=== PATIENT | female | born 1975 | race Caucasian/White ===

== ENCOUNTER 2017-12-24 09:19 | Emergency (ER) | payer SELFPAY ==
[2017-12-24 09:20] VITALS: BP 154/84; PULSE 101; RESP 20; TEMP 36.6; O2SAT 96; BMI 42.8
--- NOTE | 2017-12-24 10:00 | XR_ITS ---
XR chest 2V HISTORY: ITS.REASON: CHEST CONGESTION AND COUGH ORDERING PHYSICIAN: Karol Zendejas PATIENT AGE: 42 years COMPARISON: None available FINDINGS: The cardiomediastinal silhouette and pulmonary vascularity are within normal limits. The lungs are clear without infiltrates, suspicious nodules, or pleural effusions. No acute bony abnormalities. IMPRESSION: Negative chest, no acute finding
[2017-12-24 10:40] LABS: UTC Strep Screen (Rapid) Negative (Negative)
[2017-12-24 10:42] LABS: UTC Influenza A Antigen Negative (Negative); UTC Influenza B Antigen Negative (Negative)
--- NOTE | 2017-12-24 10:48 | HMH.EDUTC ---
[facility] [place] Clinical Impression: Acute sinusitis with symptoms > 10 days Acute bronchitis Qualifiers: Bronchitis organism: unspecified organism Qualified Code(s): J20.9 - Acute bronchitis, unspecified Disposition: Home, Self-Care Condition on Discharge: Good Instructions: DI for Sinusitis, DI for Acute Bronchitis Additional Instructions: * STOP SMOKING!!!! * start antibiotic today. Be sure to complete entire prescription even if feeling better. Augmentin was $58, Zpack $38, Doxycycline $55, amoxicillin $4. Amoxicillin is not the antibiotic I would have preferred for sinus infection but considering the cost and your lack of insurance, we can start here and if no better or getting worse, follow up and we can change then. * Monitor Temp. Follow up if fever consistent * humidifier/vaporizer/hot steamy shower * Inhaler that we provided in clinic every 4-6 hours as needed like we discussed. Should help open airways and improve cough, wheezing, shortness of breath. * Mucinex during the day for your cough and cough suppressant only at night. Be sure to drink lots of water. Insurance may not cover a prescription of mucinex. Might be cheaper to get 400mg tablets and take 2 tablets morning, midday and evening all with lots of water. * Promethazine DM cough syrup will cause drowsiness. Use it only at night. No driving, operating machinery or caring for small children after taking it. * Start steroid tomorrow since you had injection today. Helps with inflammation therefore, cough and wheezing. Follow directions on package. Rvwd side effects. Pt reports they have taken them before. * Lots of fluids * Sleep elevated * Humidifier/vaporizer * warm salt water gargles * warm fluids FOLLOW UP with primary care or return to [facility] IMMEDIATELY for new or worsening symptoms OR no noticeable improvement over the next 72 hours. 911 for difficulty breathing. Prescriptions: Amoxicillin [Amoxicillin 500mg Cap] 500 mg PO TID #30 cap predniSONE [Deltasone 10mg tablet] 10 mg PO BID #10 tab Promethazine/Dextromethorphan [Promethazine-Dm Syrup] 10 ml PO HS PRN #240 ml MDD 30ML/DAY PRN Reason: Cough Time of Disposition: 11:17 Medical Decision Making - Elpidio Inquiry Pt receiving controlled substance: No Vital Signs: 12/24/17 09:20 Temperature 97.9 F Temperature Source Tympanic Pulse Rate [Right Radial] 101 H Respiratory Rate 20 Blood Pressure [Left Arm] 154/84 Blood Pressure Mean [Left Arm] 107 Blood Pressure Source [Left Arm] Automatic Cuff Blood Pressure Position [Left Arm] Supine 02 Sat by Pulse Oximetry 96 Oxygen Delivery Method Room Air - Lab Data Lab results reviewed: Yes: I reviewed the patient's lab results. Lab Results 12/24/17 09:58: Influenza Type A Ag Negative, Influenza Type B Ag Negative 12/24/17 10:39: Strep Scn Rapid Clinic Negative Orders (Tests/Meds): ORDERS Category Date Time Status CXR 2 view (NOT portable) [XR chest 2V] Stat Exams 12/24/17 10:00 Taken Strep Screen Confirmation Stat Micro 12/24/17 10:39 Received - Radiology Data #1 Image(s): Chest Image Reviewed: Yes I reviewed the patient's radiology image w/the ED provider Preliminary Findings: Normal/NAD 1048: Dr. Martinez ER , not available at this time. Will review xray and return my call. 1056: Dr. Martinez, ER , return call. no acute findings on CXR. [facility] [place] - General Stated complaint: Chest Congestion,Vomiting Time Seen by Provider: 12/24/17 10:35 Mode of Arrival: Ambulatory Source of Information: Patient Limitations: No Limitations Description of Symptoms (Recalled from Triage Doc. by RN): sinus pressure, vomiting, pressure in ears, cough, chest congestion for 2 weeks HEENT Symptoms (Recalled from RN notes): Yes (sinus pressure, pressure in ears) Resp Symptoms (Recalled from RN notes): Yes (cough, chest congestion) Skin Symptoms (Recalled from RN notes): No MS Symptoms (Recalled from RN notes): No Functional Stat
--- NOTE | 2017-12-24 10:52 | ED_ITS ---
[facility] [place] Impression: Acute sinusitis with symptoms > 10 days Acute bronchitis Qualifiers: Bronchitis organism: unspecified organism Qualified Code(s): J20.9 - Acute bronchitis, unspecified Disposition: Home, Self-Care Condition on Discharge: Good Instructions: DI for Sinusitis, DI for Acute Bronchitis Additional Instructions: * STOP SMOKING!!!! * start antibiotic today. Be sure to complete entire prescription even if feeling better. Augmentin was $58, Zpack $38, Doxycycline $55, amoxicillin $4. Amoxicillin is not the antibiotic I would have preferred for sinus infection but considering the cost and your lack of insurance, we can start here and if no better or getting worse, follow up and we can change then. * Monitor Temp. Follow up if fever consistent * humidifier/vaporizer/hot steamy shower * Inhaler that we provided in clinic every 4-6 hours as needed like we discussed. Should help open airways and improve cough, wheezing, shortness of breath. * Mucinex during the day for your cough and cough suppressant only at night. Be sure to drink lots of water. Insurance may not cover a prescription of mucinex. Might be cheaper to get 400mg tablets and take 2 tablets morning, midday and evening all with lots of water. * Promethazine DM cough syrup will cause drowsiness. Use it only at night. No driving, operating machinery or caring for small children after taking it. * Start steroid tomorrow since you had injection today. Helps with inflammation therefore, cough and wheezing. Follow directions on package. Rvwd side effects. Pt reports they have taken them before. * Lots of fluids * Sleep elevated * Humidifier/vaporizer * warm salt water gargles * warm fluids FOLLOW UP with primary care or return to [facility] IMMEDIATELY for new or worsening symptoms OR no noticeable improvement over the next 72 hours. 911 for difficulty breathing. Prescriptions: Amoxicillin [Amoxicillin 500mg Cap] 500 mg PO TID #30 cap predniSONE [Deltasone 10mg tablet] 10 mg PO BID #10 tab Promethazine/Dextromethorphan [Promethazine-Dm Syrup] 10 ml PO HS PRN #240 ml MDD 30ML/DAY PRN Reason: Cough Time of Disposition: 11:17 Medical Decision Making - Elpidio Inquiry Pt receiving controlled substance: No Vital Signs: 12/24/17 09:20 Temperature 97.9 F Temperature Source Tympanic Pulse Rate [Right Radial] 101 H Respiratory Rate 20 Blood Pressure [Left Arm] 154/84 Blood Pressure Mean [Left Arm] 107 Blood Pressure Source [Left Arm] Automatic Cuff Blood Pressure Position [Left Arm] Supine 02 Sat by Pulse Oximetry 96 Oxygen Delivery Method Room Air - Lab Data Lab results reviewed: Yes: I reviewed the patient's lab results. Lab Results 12/24/17 09:58: Influenza Type A Ag Negative, Influenza Type B Ag Negative 12/24/17 10:39: Strep Scn Rapid Clinic Negative Orders (Tests/Meds): ORDERS Category Date Time Status CXR 2 view (NOT portable) [XR chest 2V] Stat Exams 12/24/17 10:00 Taken Strep Screen Confirmation Stat Micro 12/24/17 10:39 Received - Radiology Data #1 Image(s): Chest Image Reviewed: Yes I reviewed the patient's radiology image w/the ED provider Preliminary Findings: Normal/NAD 1048: SAW Richmond MD, not available at this time. Will review xray and return my call. 1056: Dr. Martinez, SA[facility] ROMAN, return call. no acute findings on CXR. [facility] [place] - General Stated complaint: Chest Congest
[2017-12-24 11:23] VITALS: BP 123/88; PULSE 78; RESP 20; TEMP 36.6
[2019-05-04 11:48] LABS: Apearance,Urine Clear (Clear); Color,Urine Yellow (Yellow)
[2019-05-04 11:49] LABS: Bilirubin,Urine Negative (Negative); Blood, Urine Negative (Negative); Glucose,Urine (UA) Negative (Negative); Ketones,Urine Negative (Negative); Protein,Urine 2+ (Negative); Specific Gravity, Urine 1.025 (1.005-1.030); UTC Leukocyte Esterase,Urine Negative (Negative); UTC Nitrate,Urine Negative (Negative); Urobilinogen,Urine 0.2 EU/dl (0.2)
== END 2017-12-24 11:24 | disposition home or self-care (01) ==
PROVIDERS: Emergency Provider Nurse Practitioner Family
DX: J01.90 Acute sinusitis, unspecified (principal); J20.9 Acute bronchitis, unspecified; Z88.2 Allergy status to sulfonamides; E66.9 Obesity, unspecified; Z68.41 Body mass index [BMI] 40.0-44.9, adult
CPT/HCPCS: 71046; 81003; 87804; 87880; 99203

== ENCOUNTER 2022-11-16 14:08 | Emergency (ER) | payer OTHER, SELFPAY ==
[2022-11-16] VITALS (10 sets, daily range): BP systolic 104–229; BP diastolic 56–113; PULSE 53–71; RESP 14–19; TEMP 36.7–37.2; O2SAT 95–100; BMI 48.7
--- NOTE | 2022-11-16 14:08 | ECG_ITS ---
APPROVED REPORT Exam: Resting ECG HR:62 bpm ECG Measurements Heart Rate 62 AXES NC 125 P 152 QRSd 105 QRS 185 QT 385 T 161 QTc 390 Conclusion SINUS RHYTHM NORMAL ECG UNCONFIRMED REPORT Electronically signed by : Eugene Baez MD 11/16/2022 20:53:45
--- NOTE | 2022-11-16 14:16 | XR_ITS ---
FINAL REPORT CLINICAL HISTORY: chest pain COMPARISON: 12/24/2017 FINDINGS: Two views of the chest were obtained. The heart size and pulmonary vascularity are within normal limits. The mediastinum is normal. No acute pulmonary abnormality is identified. There is no pneumothorax. The bony thorax is intact. IMPRESSION: No active cardiopulmonary disease. Reviewed, Interpreted and Dictated by Wallace Fisher III, MD Transcribed by Crystal Claudio Authenticated and [facility]
[2022-11-16 14:43] LABS: Basophils # 0.1 K/mm3 (0-0.2); Basophils % 0.8 % (0.1-2.0); Eosinophils # 0.2 K/mm3 (0.0-0.4); Eosinophils % 1.8 % (0.1-12.0); Hematocrit 45.9 % (37.0-47.0); Hemoglobin 14.8 g/dL (12.2-16.2); Lymphocytes # 3.2 K/mm3 (0.7-4.5); Lymphocytes % 27.5 % (10-50); Mean Corpuscular HGB Conc 32.3 g/dL (31.8-35.4); Mean Corpuscular Hemoglobin 29.4 pg (27.0-31.2); Mean Platelet Volume 8.3 fl (7.4-10.4); Monocytes # 0.6 K/mm3 (0.1-1.0); Monocytes % 4.7 % (1.7-9.3); Neutrophils # 7.7 K/mm3 (1.8-7.8); Neutrophils % 65.2 % (37.0-80.0); Platelet Count 353 K/mm3 (142-424); Red Blood Count 5.04 M/mm3 (4.20-5.40); Red Cell Distribution Width 13.8 % (11.5-17.5); White Blood Count 11.8 K/mm3 (4.8-10.8)
--- NOTE | 2022-11-16 14:43 | HMH.EDGENADL ---
Discharge Plan Disposition Patient Disposition: Home, Self-Care Prescriptions Prescriptions: No Action amoxicillin 500 MG capsule 500 mg PO TID Qty: 30 0RF promethazine-DM 118 ML syrup 10 ml PO HS MDD 30ML/DAY PRN (Reason: Cough) Qty: 240 0RF prednisone 10 MG tablet 10 mg PO BID Qty: 10 0RF Referrals Follow up/Referrals: Provider,Referral, MD [Primary Care Provider] - See instructions Activity Restrictions/Add. Instructions Additional Instructions/Restrictions: Please follow-up with your primary care physician with resources that were given to you today. Clinical Impressions Clinical Impression: Atypical chest pain Discharge ED Provider: Tonny Rahman Adult HPI General Chief complaint: Chest Pain Stated complaint: CP Time Seen by Provider: 11/16/22 14:43 History of Present Illness HPI narrative: Patient is a 47-year-old female presents today with chest discomfort over the last few days. She also states that she had some transient symptoms of some abnormal skin coloration to her right upper extremity and bilateral lower extremities in the past which have since completely resolved. She denies any radiation to her back. She denies any history of similar symptoms. This the symptoms were not exertional in nature. They are not associated with dyspnea they are not associated with nausea. She does not have a history of coronary disease or any other significant risk factors. She currently has mild chest discomfort. Central in nature. Pain is mild. Related Data Previous Rx's Medication Instructions Recorded amoxicillin 500 mg capsule 500 mg PO TID #30 caps 12/24/17 prednisone 10 mg tablet 10 mg PO BID #10 tabs 12/24/17 promethazine-DM 6.25 mg-15 mg/5 mL 10 ml PO HS PRN Cough #240 mL 12/24/17 oral syrup Allergies Allergy/AdvReac Type Severity Reaction Status Date / Time Sulfa (Sulfonamide Allergy Verified 12/24/17 09:59 Antibiotics) [facility] Disclaimer: The information contained in this section may have been updated after the patient was seen, as this information can be updated by other users. Social History Smoking Status: Current every day smoker tobacco type: cigarettes second hand exposure: Yes alcohol intake: never current occupational status: other Travel in the last 8 weeks: None ROS Obtained: Yes All systems reviewed & no additional complaints except as documented Physical Exam General General appearance: alert, in no apparent distress and appears intoxicated Head Head exam: atraumatic and normocephalic Eye Eye exam: Present normal appearance, PERRL and EOMI ENT ENT exam: Present normal exam Neck Neck exam: Present normal inspection and full ROM Chest Chest inspection: Present normal inspection and symmetric chest wall rise; Absent tenderness Respiratory Respiratory exam: Present normal lung sounds bilaterally; Absent respiratory distress, wheezes or stridor Cardiovascular Cardiovascular exam: Present regular rate and tachycardia Abdominal Exam Abdominal exam: Present soft; Absent distention or tenderness Neurological Exam Neurological exam: Present alert and oriented X3 Medical Decision Making Elpidio Inquiry Pt receiving controlled substance: No Elpidio was queried for this patient: No Vital Signs: 11/16/22 14:30 11/16/22 14:31 11/16/22 15:02 Temperature 98.9 F Temperature Source Oral Pulse Rate 60 61 Pulse Rate [Left] 71 Respiratory Rate 18 16 14 Blood Pressure 146/69 H 173/88 H Blood Pressure [Right Arm] 229/113 H Blood Pressure Mean 94 107 Blood Pressure Mean [Right Arm] 151 02 Sat by Pulse Oximetry 100 97 98 Oxygen Delivery Method Room Air 11/16/22 15:33 11/16/22 16:01 11/16/22 16:33 Temperature Temperature Source Pulse Rate 59 L 58 L 53 L Pulse Rate [Left] Respiratory Rate 15 Blood Pressure 129/70 104/56 L 150/67 H Blood Pressure [Right Arm] Blood Pressure Mean 89 90 94 Blood Pr
[2022-11-16 14:47] LABS: Alanine Aminotransferase 33 U/L (12-78); Albumin Level 4.3 g/dl (3.5-5.0); Alkaline Phosphatase 67 U/L (38-126); Anion Gap 7.7 mEq/L (5-15); Aspartate Amino Transferase 28 U/L (14-36); Bilirubin,Direct 0.2 mg/dl (0.0-0.4); Bilirubin,Indirect 0.3 mg/dL (0.0-0.9); Bilirubin,Total 0.5 mg/dl (0.2-1.3); Bilirubin,Unconjugated 0.3 mg/dL (0.0-1.1); Blood Urea Nitrogen 14 mg/dl (7-17); Calcium 8.7 mg/dl (8.4-10.2); Carbon Dioxide 34 mmol/L (22.0-30.0); Chloride 105 mmol/L (98-107); Estimated Glomerular Filt Rate 53 ml/min (>60); GFR (African American) 65 ML/MIN (>60); Glucose 108 mg/dl (74-100); Potassium 3.7 mmoL/L (3.5-5.1); Sodium 143 mmol/L (136-145); Total Protein,Serum 7.7 g/dl (6.3-8.2)
[2022-11-16 14:49] LABS: Creatinine Clearance Estimated 67 mL/min (50-200)
[2022-11-16 15:01] LABS: Troponin I < 0.01 ng/ml (0.00-0.034)
[2022-11-16 15:24] LABS: D-Dimer 0.55 ug/mL (0.0-0.5)
--- NOTE | 2022-11-16 15:50 | PC.NURSE ---
Rounded on patient, pt sitting up on ED stretcher looking at cell phone, Spouse at BS. no needs at this time aware that we are still waiting on some results. call light within reach
[2022-11-16 18:26] LABS: Troponin I < 0.01 ng/ml (0.00-0.034)
== END 2022-11-16 19:43 | disposition home or self-care (01) ==
PROVIDERS: Emergency Provider Student in an Organized Health Care Education/Training Program
DX: R07.89 Other chest pain (principal); F17.210 Nicotine dependence, cigarettes, uncomplicated
CPT/HCPCS: 71046; 80048; 80076; 84484; 85025; 85378; 93005; 99285

== ENCOUNTER 2023-07-08 17:20 | Emergency (ER) | payer OTHER, SELFPAY ==
[2023-07-08 18:25] VITALS: BP 181/96; PULSE 96; RESP 18; TEMP 37.4; O2SAT 99; BMI 43.7
--- NOTE | 2023-07-08 18:53 | EXP.UTC ---
Discharge Plan Disposition Patient Disposition: Home, Self-Care Condition: Good Prescriptions Prescriptions: New guaifenesin [Mucinex] 600 mg tablet extended release 12hr 1,200 mg PO BID PRN (Reason: cough) Qty: 20 0RF Referrals Follow up/Referrals: Provider,Referral, MD [Primary Care Provider] - See instructions Activity Restrictions/Add. Instructions Additional Instructions/Restrictions: *Monitor Temp, Over the counter Motrin or Tylenol as directed/as needed Tylenol every 4 hours and Motrin every 6 hours (as long as your family doctor has told you that you can take it) for fever or pain. and straight to ER if unable to lower temp less than 101.0 after medication given *Warm salt water gargles may help to soothe the throat *Throat Lozenges? *Warm fluids like tea with honey may help to soothe the throat? *Sleep elevated *Humidifier/Vaporizer *Flonase 2 sprays in each nostril daily but be aware that it may take 2-3 days before you notice improvement *Your throat swab was sent for culture. Those results are typically sent to your primary care. Be sure to follow up in 2-3 days with your family doctor/primary care physician if no improvement so they can review those result and treat if necessary. If you don?t have a primary care doctor, I recommend you get one but in the mean time, you will have to return to a walk in clinic Follow up IMMEDIATELY for new or worsening symptoms or no Noticeable improvement over the next 48-72 hours. 911 for difficulty breathing or swallowing You were tested for today for COVID19 your test result should be back in the next 24 hours You may check your result on the [facility] [facility] Portal for your results if you are positive you must Quarantine for 5 days Clinical Impressions Clinical Impression: URI (upper respiratory infection) Qualifiers: URI type: unspecified URI Qualified Code(s): J06.9 - Acute upper respiratory infection, unspecified Stand Alone Forms Stand Alone Forms: Work/School Release Instructions Patient Instructions: Sore Throat, DI for Nasal Congestion, DI for Headache Discharge ED Provider: Alysha Leslie [facility] [place] HPI General Stated complaint: fever,sore throat,PETERSON Mode of Arrival: Ambulatory Source of Information: Patient Limitations: No Limitations Time Seen by Provider: 07/08/23 18:53 Description of Symptoms (Recalled from Triage Doc. by RN): PATIENT C/O BODY ACHES, SORE THROAT, COUGH AND HEADACHE SINCE THIS MORNING HEENT Symptoms (Recalled from RN notes): Yes Resp Symptoms (Recalled from RN notes): Yes Skin Symptoms (Recalled from RN notes): No MS Symptoms (Recalled from RN notes): No Functional Status (Recalled from RN notes): WNL History of Present Illness Provider Complaint: Patient states that she had a cold a couple weeks ago and was doing better but this morning she woke up and and was having nasal congestion, sore throat, body aches, feeling achy all over and feels like she may have the flu States that this evening she was still feeling bad so she came in to get checked Related Data Previous Rx's Medication Instructions Recorded guaifenesin 600 mg tablet, 1,200 mg PO BID PRN cough #20 tabs 07/08/23 extended release 12 hr (Mucinex) Allergies Allergy/AdvReac Type Severity Reaction Status Date / Time Sulfa (Sulfonamide Allergy Verified 12/24/17 09:59 Antibiotics) Worker's Comp Is this a Worker's Comp case?: No [facility] Disclaimer: The information contained in this section may have been updated after the patient was seen, as this information can be updated by other users. Social History (Updated 11/16/22 @ 19:30 by Lillian Rahman MD) Smoking Status: Current every day smoker tobacco type: cigarettes second hand exposure: Yes alcohol intake: never current occupational status: other Travel in the last 8 weeks: None ROS Obtained: Yes All systems reviewed & no additional complaints e
[2023-07-08 18:56] LABS: UTC Influenza A Antigen Negative (Negative); UTC Influenza B Antigen Negative (Negative); UTC Strep Screen (Rapid) Negative (Negative)
[2023-07-08 18:59] VITALS: BP 181/96; PULSE 96; RESP 18; TEMP 37.4; O2SAT 99
== END 2023-07-08 19:04 | disposition home or self-care (01) ==
PROVIDERS: Emergency Provider Nurse Practitioner
DX: U07.1 COVID-19 (principal); R05.9 Cough, unspecified; F17.210 Nicotine dependence, cigarettes, uncomplicated
CPT/HCPCS: 87635; 87804; 87880; 99204; 99212; G0463

== ENCOUNTER 2024-02-03 16:37 | Emergency (ER) | payer SELFPAY ==
[2024-02-03 16:55] VITALS: BP 148/92; PULSE 87; RESP 19; TEMP 36.6; O2SAT 98; BMI 56.6
--- NOTE | 2024-02-03 17:08 | EXP.UTC ---
Discharge Plan Disposition Patient Disposition: Home, Self-Care Condition: Good Prescriptions Prescriptions: New ondansetron 4 mg tablet,disintegrating 4 mg PO Q8H PRN (Reason: nausea and vomiting) Qty: 12 0RF No Action guaifenesin [Mucinex] 600 mg tablet extended release 12hr 1,200 mg PO BID PRN (Reason: cough) Qty: 20 0RF Referrals Follow up/Referrals: Provider,Referral, MD [Primary Care Provider] - See instructions Activity Restrictions/Add. Instructions Additional Instructions/Restrictions: Drink extra fluids with and between meals. If you have difficulty drinking, try very small amounts of water or suck on ice chips. ? Avoid fruit juices, as these do not replace minerals and can actually increase diarrhea. ? Children and adults can use sports drinks to replenish electrolytes. Younger children and infants should use products formulated for children, like oral rehydration solutions. ? Eat food in small amounts and let your stomach recover. ? Get lots of rest. You may feel tired or weak. ? No greasy or fried foods for the next 24-48 hours BRAT diet Bananas Rice Apples and [place] ? Make sure to drink plenty of liquids ? Return if needed ? Straight to ER if any life threatening symptoms ? Zofran as prescribed ? You was given an outpatient order for diarrhea panel, please collect specimen and bring back to outpatient lab then call back to the [facility] or follow up with family doctor for results ? Follow up with family doctor in the next 48-72 hours if no improvement or any worsening of symptoms Clinical Impressions Clinical Impression: Viral syndrome Stand Alone Forms Stand Alone Forms: Work/School Release Instructions Patient Instructions: Diarrhea, DI for Nausea -- Adult Discharge ED Provider: Alysha Leslie [facility] [place] HPI General Stated complaint: abd pain, V/D, PETERSON Mode of Arrival: Ambulatory Source of Information: Patient Limitations: No Limitations Time Seen by Provider: 02/03/24 17:08 Description of Symptoms (Recalled from Triage Doc. by RN): PATIENT C/O NAUSEA, FEVER, CHILLS, STOMACH CRAMPS, BODY ACHES, AND HEADACHE SINCE SATURDAY MORNING HEENT Symptoms (Recalled from RN notes): Yes Resp Symptoms (Recalled from RN notes): No Skin Symptoms (Recalled from RN notes): No MS Symptoms (Recalled from RN notes): No Functional Status (Recalled from RN notes): WNL History of Present Illness Provider Complaint: Patient states that she has been having diarrhea, body aches, chills, nausea only vomited once but her diarrhea has been bad headache and over all not feeling well States that she is unsure if she has been around someone sick or not so today when she was still having bad diarrhea and nausea she was worried that she may get dehydrated so she came in to get checked Related Data Previous Rx's Medication Instructions Recorded guaifenesin 600 mg tablet, 1,200 mg (2 x 600 mg) PO BID PRN 07/08/23 extended release 12 hr (Mucinex) cough #20 tabs ondansetron 4 mg disintegrating 4 mg PO Q8H PRN nausea and 02/03/24 tablet vomiting #12 tabs Allergies Allergy/AdvReac Type Severity Reaction Status Date / Time Sulfa (Sulfonamide Allergy Verified 12/24/17 09:59 Antibiotics) Worker's Comp Is this a Worker's Comp case?: No [facility] Disclaimer: The information contained in this section may have been updated after the patient was seen, as this information can be updated by other users. Social History (Updated 11/16/22 @ 19:30 by Lillian Rahman MD) Smoking Status: Current every day smoker tobacco type: cigarettes second hand exposure: Yes alcohol intake: never current occupational status: other Travel in the last 8 weeks: None ROS Obtained: Yes All systems reviewed & no additional complaints except as documented and Yes Systems reviewed as appropriate & no additional complaints except as documented Constitutional Constitutional: Reports system reviewed and no additional complaints, except as documented, Reports as per HPI, Reports body ache, Reports chills, Reports fever(s) and Reports headache(s) ENT Ears, Nose, Mouth, and Throat: Reports system reviewed and no additional complaints, except as documented, Reports as per HPI and Reports headache(s) Cardiovascular Cardiovascular: Reports system reviewed and no additional complaints, except as documented and Reports as per HPI Respiratory Respiratory: Reports system reviewed and no additional complaints, except as documented and Reports as per HPI Gastrointestinal Gastrointestingal: Reports system reviewed and no additional complaints, except as documented, as per HPI, cramping, diarrhea, nausea and vomiting (once yesterday) Neurologic Neurologic: Reports headache(s) Physical Exam General General appearance: alert and in no apparent distress Expanded ENT Exam Nose exam: Absent sinus tenderness Throat exam: Present normal inspection Respiratory Respiratory exam: Present normal lung sounds bilaterally; Absent respiratory distress or wheezes Cardiovascular Cardiovascular exam: Present regular rate, normal rhythm and normal heart sounds Abdominal Exam Abdominal exam: Present soft and hyperactive bowel sounds; Absent distention or tenderness Neurological Exam Neurological exam: Present alert, oriented X3 and normal gait Medical Decision Making Elpidio Inquiry Pt receiving controlled substance: No Elpidio was queried for this patient: No Vital Signs: 02/03/24 16:55 Temperature 97.8 F Temperature Source Oral Pulse Rate [Left Brachial] 87 Respiratory Rate 19 Blood Pressure [Left Arm] 148/92 H Blood Pressure Mean [Left Arm] 110 Blood Pressure Source [Left Arm] Automatic Cuff Blood Pressure Position [Left Arm] Sitting 02 Sat by Pulse Oximetry 98 Oxygen Delivery Method Room Air Medical Decision Narrative: Discussed with patient that if she has diarrhea while in the UTC she needed to collect it to send to lab, discussed lab work and patient states she doesnt have any insurance, lips appear slightly dry discussed iv bolus of NS and patient agreed will give bolus of NS and zofran for nausea and reassess Patient states that nausea is much better after zofran and no diarrhea in the UTC but states that she is feeling better after the fluids States that she wants to go home and continue to hydrate and was dc'd with diarrhea panel order to bring back diarrhea sample if diarrhea continues
[2024-02-03 17:21] LABS: UTC Influenza A Antigen Negative (Negative); UTC Influenza B Antigen Negative (Negative)
[2024-02-03] MEDS: ONDANSETRON 4MG/2ML VIAL 4 MG IV (17:34)
[2024-02-03] MEDS: SODIUM CHLORIDE 0.9% 500ML BAG 500 ML IV (17:34)
[2024-02-03] MEDS: SODIUM CHLORIDE 0.9% 10ML FLUSH SYRINGE 10 ML IV (17:36)
[2024-02-03 18:11] VITALS: BP 148/92; PULSE 87; RESP 19; TEMP 36.6; O2SAT 98
== END 2024-02-03 18:29 | disposition home or self-care (01) ==
PROVIDERS: Emergency Provider Nurse Practitioner
DX: R11.2 Nausea with vomiting, unspecified; R19.7 Diarrhea, unspecified; R51.9 Headache, unspecified; F17.210 Nicotine dependence, cigarettes, uncomplicated
CPT/HCPCS: 87804; 96374; 99212; 99214; G0463; J2405

== ENCOUNTER 2024-02-04 20:02 | Outpatient (CLI) | payer SELFPAY ==
[2024-02-04 20:50] LABS: Adenovirus F 40/41, stool Not Detected (NotDetected); Campylobacter Not Detected (NotDetected); Clostridium Difficile A/B, PCR Not Detected (NotDetected); Cryptosporidium Not Detected (NotDetected); Cyclospora Cayetanesis Not Detected (NotDetected); Entamoeba histolytica Not Detected (NotDetected); Enteroaggregative E coli Not Detected (NotDetected); Enteropathogenic E coli Not Detected (NotDetected); Enterotoxigenic E coli Not Detected (NotDetected); Giardia lamblia Not Detected (NotDetected); Norovirus Not Detected (NotDetected); Plesimonas Shigalloides, PCR Not Detected (NotDetected); Rotavirus A Not Detected (NotDetected); Salmonella, PCR Not Detected (NotDetected); Sapovirus Not Detected (NotDetected); Shiga-like toxin E coli Not Detected (NotDetected); Shigella Enterovasive E coli Not Detected (NotDetected); Vibrio Cholerae Not Detected (NotDetected); Vibrio, PCR Not Detected (NotDetected); Yersinia Entercolitica, PCR Not Detected (NotDetected)
[2024-02-07 05:53] LABS: Astrovirus Detected (NotDetected)
== END 2024-02-04 23:59 | disposition home or self-care (01) ==
LOC: LAB.DROPOF 20:05
PROVIDERS: PCP Nurse Practitioner; Visit Provider Nurse Practitioner
DX: R19.7 Diarrhea, unspecified (principal); A08.32 Astrovirus enteritis
CPT/HCPCS: 87507

== ENCOUNTER 2024-04-03 10:48 | Emergency (ER) | payer SELFPAY ==
[2024-04-03 10:50] VITALS: BP 178/95; PULSE 94; RESP 15; TEMP 37; O2SAT 96; BMI 50.1
[2024-04-03 10:54] VITALS: BP 178/95; PULSE 87; O2SAT 97
[2024-04-03 11:15] VITALS: PULSE 91; O2SAT 95
--- NOTE | 2024-04-03 11:22 | PC.NURSE ---
DR FIGUEROA AT BEDSIDE
--- NOTE | 2024-04-03 11:31 | XR_ITS ---
FINAL REPORT CLINICAL HISTORY: CP fluid retention COMPARISON: 11/16/2022 FINDINGS: No acute pulmonary opacity is present. There is no evidence of effusion or pneumothorax. Mediastinum is unremarkable. Heart size is normal. IMPRESSION: No acute abnormality. Reviewed, Interpreted and Dictated by Rodo Nair MD Transcribed by Alejandra Urena Authenticated and [facility]
--- NOTE | 2024-04-03 11:55 | ED_ITS ---
Discharge Plan Disposition Patient Disposition: Home, Self-Care Prescriptions Prescriptions: New hydrochlorothiazide 25 mg tablet 25 mg PO DAILY Qty: 30 3RF No Action ondansetron 4 mg tablet,disintegrating 4 mg PO Q8H PRN (Reason: nausea and vomiting) Qty: 12 0RF guaifenesin [Mucinex] 600 mg tablet extended release 12hr 1,200 mg PO BID PRN (Reason: cough) Qty: 20 0RF Referrals Follow up/Referrals: Provider,MD Deshawn [Primary Care Provider] - See instructions Eugene Lee MD [Staff Physician] - See instructions Activity Restrictions/Add. Instructions Additional Instructions/Restrictions: Call your family doctor to establish care for this visit to the emergency department and schedule follow-up within 48 hours to ensure improvement. If you have any worsening of your condition or any other concerning signs or symptoms, return to the emergency department or your primary care doctor for further evaluation. Hydrochlorothiazide with multiple refills sent to the pharmacy. If you feel this is not helping, candesartan, or another drug in this class may be helpful. Clinical Impressions Clinical Impression: Headache, Hypertension Discharge ED Provider: Eladio Mclaughlin General Adult HPI General Chief complaint: Headache Stated complaint: Headache, bp 200/118 when she checked Time Seen by Provider: 04/03/24 10:54 Mode of Arrival: Ambulatory Source of Information: Patient Limitations: No Limitations Description of Symptoms (Recalled from ER Triage Doc. by RN): pt presents to ED with c/o high blood pressure and headache. headache began yesterday. pt reports no hx of hypertension. but last night she checked her bp and it was 582/121, pt reports to taking cozaar 50 mg approx 930pm. pt reprots when she checked her bp this am, it was 200/117. History of Present Illness HPI narrative: Please note that above description of symptoms, in this electronic medical record under categorization of recalled from ER triage doctor by RN are reflective of an initial nursing assessment, however, is not reflective of my full history and physical exam that was personally taken and clarified. Consequentially, this preceding description of symptoms, which may include the patient's categorized chief complaint in the EMR, do not reflect my personal clinical impression, and the ultimate description of history of present illness and patient stated complaints should be deferred to this section of the note. Unless stated otherwise or congruent with this section of the note, additional signs, symptoms, or incongruence should be interpreted as inaccurate with my clinical impression. Related Data Previous Rx's Medication Instructions Recorded guaifenesin 600 mg tablet, 1,200 mg (2 x 600 mg) PO BID PRN 07/08/23 extended release 12 hr (Mucinex) cough #20 tabs ondansetron 4 mg disintegrating 4 mg PO Q8H PRN nausea and 02/03/24 tablet vomiting #12 tabs hydrochlorothiazide 25 mg tablet 25 mg PO DAILY #30 tabs 04/03/24 Allergies Allergy/AdvReac Type Severity Reaction Status Date / Time Sulfa (Sulfonamide Allergy Verified 12/24/17 09:59 Antibiotics) [facility] Disclaimer: The information contained in this section may have been updated after the patient was seen, as this information can be updated by other users. Social History (Updated 11/16/22 @ 19:30 by Lillian Rahman MD) Smoking Status: Current every day smoker tobacco type: cigarettes second hand exposure: Yes alcohol intake: never current occupational status: other Travel in the last 8 weeks: None ROS Obtained: Yes All systems reviewed & no additional complaints except as documented Physical Exam General General appearance: alert and in no apparent distress Head Head exam: atraumatic and normocephalic Eye Eye exam: Present normal appearance, PERRL and EOMI ENT ENT exam: Present mucous membranes moist Neck Neck exam: Present normal inspection, full ROM and trachea midline Respiratory Respiratory exam: Absent respiratory distress, wheezes, stridor, accessory muscle use or prolonged expiratory phase Cardiovascular Cardiovascular exam: Present normal rhythm Abdominal Exam Abdominal exam: Present soft; Absent distention, tenderness, guarding, rebound or rigidity Extremities Exam Extremities exam: Absent edema Neurological Exam Neurological exam: Present alert, oriented X3, CN II-XII intact and normal gait; Absent motor sensory deficit Skin Skin exam: Present warm and dry; Absent diaphoresis or erythema Medical Decision Making Medical Records Medical records reviewed: Yes I reviewed the patient's medical records. [place] Inquiry Pt receiving controlled substance: No Elpidio was queried for this patient: No Vital Signs: 04/03/24 10:50 04/03/24 10:54 04/03/24 11:15 Temperature 98.6 F Temperature Source Oral Pulse Rate 87 91 H Pulse Rate [Left Radial] 94 H Respiratory Rate 15 Blood Pressure 178/95 H Blood Pressure [Right Arm] 178/95 H Blood Pressure Mean [Right Arm] 122 02 Sat by Pulse Oximetry 96 97 95 Oxygen Delivery Method Room Air Room Air Room Air 04/03/24 12:49 Temperature Temperature Source Pulse Rate 88 Pulse Rate [Left Radial] Respiratory Rate Blood Pressure 135/79 Blood Pressure [Right Arm] Blood Pressure Mean [Right Arm] 02 Sat by Pulse Oximetry 94 L Oxygen Delivery Method Lab Data Lab Results 04/03/24 11:44: WBC 10.6, RBC 4.77, Hgb 13.8, Hct 43.1, MCV 90.5, MCH 28.9, MCHC 31.9, RDW 14.4, Plt Count 355, MPV 8.4, Neut % (Auto) 66.6, Lymph % (Auto) 24.5, [place] % (Auto) 5.6, Eos % (Auto) 2.1, Baso % (Auto) 1.2, Neut # (Auto) 7.0, Lymph # (Auto) 2.6, [place] # (Auto) 0.6, Eos # (Auto) 0.2, Baso # (Auto) 0.1, Sodium 140, Potassium 4.2, Chloride 104, Carbon Dioxide 31 H, Anion Gap 9.2, BUN 17, Creatinine 0.90, Estimated Creat Clear 77, Estimated GFR 67, Est GFR ( Amer) 81, Glucose 126 H, Hemoglobin A1c 6.0, Calcium 8.7, Magnesium 2.1, Total Bilirubin 0.4, AST 29, ALT 34, Alkaline Phosphatase 70, Troponin I < 0.01, NT-Pro-B Natriuret Pep 58.3, Total Protein 7.3, Albumin 3.8, Globulin 3.5 H, Albumin/Globulin Ratio 1.1, Triglycerides 117, Cholesterol 133 L, LDL Cholesterol Direct 41.28 L, VLDL Cholesterol 23, HDL Cholesterol 46, Cholesterol/HDL Ratio 2.9 04/03/24 11:44 04/03/24 11:44 Orders (Tests/Meds): ED MEDICATIONS Discontinued Medications Generic Name Dose Route Start Last Admin Trade Name Freq PRN Reason Stop Dose Admin Acetaminophen 1,000 mg 04/03/24 11:31 04/03/24 12:09 Acetaminophen 1,000mg/100ml Vial IV 04/03/24 11:32 1,000 mg ONCE ONE Administration Dexamethasone Sodium Phosphate 10 mg 04/03/24 11:31 04/03/24 12:08 Dexamethasone 4mg/Ml 1ml Vial IV 04/03/24 11:32 10 mg ONCE ONE Administration Diphenhydramine HCl 25 mg 04/03/24 11:31 04/03/24 12:08 Diphenhydramine 50mg/Ml Vial IV 04/03/24 11:32 25 mg ONCE ONE Administration Lactated Ringer's 500 mls @ 999 mls/hr 04/03/24 11:32 04/03/24 12:11 Lactated Ringer's 500ml IV 04/03/24 12:02 999 mls/hr .Q31M ONE Administration Ketorolac Tromethamine 15 mg 04/03/24 11:31 04/03/24 12:08 Ketorolac 30mg/Ml Vial IV 04/03/24 11:32 15 mg ONCE ONE Administration Prochlorperazine Edisylate 10 mg 04/03/24 11:31 04/03/24 12:08 Prochlorperazine 10mg/2ml Vial IV 04/03/24 11:32 10 mg ONCE ONE Administration ORDERS Category Date Time Status CXR --portable [XR chest portable] Stat Exams 04/03/24 11:31 Completed CBC w/Auto Diff [Complete Blood Count Auto Diff] Stat Lab 04/03/24 11:44 Completed CMP [Comprehensive Metabolic Panel] Stat Lab 04/03/24 11:44 Completed Hemoglobin A1C Stat Lab 04/03/24 11:44 Completed Lipid Panel Stat Lab 04/03/24 11:44 Completed Magnesium Stat Lab 04/03/24 11:44 Completed NT Pro Brain Natriuretic Pep. Stat Lab 04/03/24 11:44 Completed Trop I [Troponin I] Stat Lab 04/03/24 11:44 Completed Troponin I Q3H Lab 04/03/24 14:45 Ordered Troponin I Q3H Lab 04/03/24 17:45 Ordered Medical Decision Narrative: 49-year-old female history of intermittent headaches, obesity presenting with concern for high blood pressure and headaches. Patient states that she had a headache a few days ago, thinks it may be similar related to this episode. Today, started having headache after she woke up, took her blood pressure on her 's blood pressure cuff, it was greater than 200 systolic. Did not go down with conservative management, continued having headache that was unresponsive to Tylenol and Motrin. Headache is in the ground of her head, moderate in intensity, is photophobic not phonophobic. Intermittently having chest pains, has not had any today. No vision changes, neurologic deficits, or any other concerns. History was obtained via conversation with patient. On arrival, patient hemodynamically stable, alert, oriented x4, appropriate, GCS 15, moving all extremities spontaneously, pupils equal and reactive to light. Full physical exam performed and significant for well-appearing female no acute distress. Neurovascularly intact including cranial nerves, cerebellar, motor and sensory. Cardiac exam within normal limits other than hypertensive. Lungs are clear to auscultation. Patient saturating appropriately. Differential includes migraine, tension headache, hypertensive emergency, PRES, ACS, CHF, among others. Patient was given migraine cocktail for symptomatic management and correction of underlying abnormalities. Workup independently interpreted and significant for nonactionable CBC or chemistry. Troponin negative. BNP negative. Chest x-ray without acute cardiopulmonary airspace disease, no evidence of effusions or edema. See radiology read for full review of final results. On reevaluation, patient feeling much better tolerating p.o. intake without issue. At this time I feel this is likely hypertension related headaches versus tension headaches. Patient does not have family doctor, referral was given. Hydrochlorothiazide also sent to the pharmacy to help with fluid and blood pressure. Because patient at baseline without signs or symptoms of clinical decompensation, deemed appropriate for discharge. Results were relayed to patient who voiced understanding and were agreeable to outpatient management and follow up. I discussed my clinical impression with patient and answered all questions. At this time, the evidence for any other entities in the differential is insufficient to warrant any further testing or ED observation. This was explained as well. Advisory was given that persistent or worsening symptoms require further evaluation. I confirmed the understanding of this discussion. Lunchroom Operator disclaimer Much of this encounter note is an electronic technology sales consultant spoken language to printed text. Electronic technology sales consultant of the spoken language may permit errors. Although I have reviewed the note, some errors may still exist. Critical Care Critical Care Time Critical Care Time: No
--- NOTE | 2024-04-03 11:55 | PC.NURSE ---
RAD at bedside for XRay at this time.
[2024-04-03 12:01] LABS: Basophils # 0.1 K/mm3 (0-0.2); Basophils % 1.2 % (0.1-2.0); Eosinophils # 0.2 K/mm3 (0.0-0.4); Eosinophils % 2.1 % (0.1-12.0); Hematocrit 43.1 % (37.0-47.0); Hemoglobin 13.8 g/dL (12.2-16.2); Lymphocytes # 2.6 K/mm3 (0.7-4.5); Lymphocytes % 24.5 % (10-50); Mean Corpuscular HGB Conc 31.9 g/dL (31.8-35.4); Mean Corpuscular Hemoglobin 28.9 pg (27.0-31.2); Mean Corpuscular Volume 90.5 fl (81-99); Mean Platelet Volume 8.4 fl (7.4-10.4); Monocytes # 0.6 K/mm3 (0.1-1.0); Monocytes % 5.6 % (1.7-9.3); Neutrophils % 66.6 % (37.0-80.0); Platelet Count 355 K/mm3 (142-424); Red Blood Count 4.77 M/mm3 (4.20-5.40); Red Cell Distribution Width 14.4 % (11.5-17.5); White Blood Count 10.6 K/mm3 (4.8-10.8)
[2024-04-03 12:05] LABS: Chloride 104 mmol/L (98-107); Potassium 4.2 mmoL/L (3.5-5.1); Sodium 140 mmol/L (136-145)
[2024-04-03 12:07] LABS: Blood Urea Nitrogen 17 mg/dl (7-17); Creatinine Clearance Estimated 77 mL/min (50-200); Estimated Glomerular Filt Rate 67 ml/min (>60); GFR (African American) 81 ML/MIN (>60)
[2024-04-03 12:08] LABS: Alanine Aminotransferase 34 U/L (12-78); Albumin Level 3.8 g/dl (3.5-5.0); Albumin/Globulin Ratio 1.1 (1.1-1.8); Alkaline Phosphatase 70 U/L (38-126); Anion Gap 9.2 mEq/L (5-15); Aspartate Amino Transferase 29 U/L (14-36); Bilirubin,Total 0.4 mg/dl (0.2-1.3); Calcium 8.7 mg/dl (8.4-10.2); Carbon Dioxide 31 mmol/L (22.0-30.0); Globulin 3.5 g/dL (1.3-3.2); Glucose 126 mg/dl (74-100); Total Protein,Serum 7.3 g/dl (6.3-8.2)
[2024-04-03] MEDS: diphenhydrAMINE 50MG/ML VIAL 25 MG IV (12:08)
[2024-04-03] MEDS: KETOROLAC 30MG/ML VIAL 15 MG IV (12:08)
[2024-04-03] MEDS: DEXAMETHASONE 4MG/ML 1ML VIAL 10 MG IV (12:08)
[2024-04-03] MEDS: PROCHLORPERAZINE 10MG/2ML VIAL 10 MG IV (12:08)
[2024-04-03 12:09] LABS: Magnesium 2.1 mg/dl (1.6-2.3)
[2024-04-03] MEDS: ACETAMINOPHEN 1,000MG/100ML VIAL 1000 MG IV (12:09)
[2024-04-03] MEDS: RINGERS SOLUTION,LACTATED 500 ML 999 ML IV (12:11)
[2024-04-03 12:16] LABS: Chol/HDL Ratio 2.9 (1-3.5); Cholesterol 133 mg/dl (140-200); HDL Cholesterol 46 mg/dl (40-60); Triglycerides 117 mg/dl (30-150); VLDL Cholesterol 23 mg/dL (0-40)
[2024-04-03 12:18] LABS: NT Pro Brain Natriuretic Pep. 58.3 pg/mL (0-125)
[2024-04-03 12:21] LABS: Troponin I < 0.01 ng/ml (0.00-0.034)
[2024-04-03 12:26] LABS: Direct LDL Cholesterol 41.28 mg/dL (100-129)
[2024-04-03 12:49] VITALS: BP 135/79; PULSE 88; O2SAT 94
--- NOTE | 2024-04-03 12:50 | PC.NURSE ---
heated blanket given upon request.
[2024-04-03 13:58] VITALS: BP 164/111; PULSE 86; RESP 18; TEMP 36.7; O2SAT 95
== END 2024-04-03 13:59 | disposition home or self-care (01) ==
PROVIDERS: Emergency Provider Emergency Medicine
DX: R51.9 Headache, unspecified (principal); I10 Essential (primary) hypertension; F17.210 Nicotine dependence, cigarettes, uncomplicated
CPT/HCPCS: 71045; 80053; 80061; 83036; 83735; 83880; 84484; 85025; 96374; 96375; 99284; J0131; J1100; J1885; J7120